=== PATIENT | male | born 2000 | race Asian ===

== ENCOUNTER 2022-07-02 08:00 | Outpatient (CLI) | payer OTHER ==
[2022-07-02 23:36] LABS: CHLAMYDIA TRACHOMATIS DNA NEGATIVE (NEGATIVE); NEISSERIA GONORRHOEAE DNA NEGATIVE (NEGATIVE)
[2022-07-04 05:11] LABS: RPR Non Reactive (Non Reactive)
[2022-07-04 06:09] LABS: HCV AB 0.1 s/co ratio (0.0-0.9); HIV SCREEN 4TH GENERATION Non Reactive (Non Reactive)
== END 2022-07-02 23:59 | disposition home or self-care (01) ==
LOC: LAB.N 08:00
PROVIDERS: ATTEND Physician Assistant Medical
DX: N48.1 Balanitis (principal)
CPT/HCPCS: 36415; 86592; 86803; 87389; 87491; 87591; 87661